=== PATIENT | male | born 1990 | race Caucasian/White ===

== ENCOUNTER 2024-01-07 09:57 | Emergency (ER) | payer OTHER, SELFPAY ==
[2024-01-07 10:14] VITALS: BP 131/84; PULSE 96; RESP 12; TEMP 36.8; O2SAT 97; BMI 33.6
--- NOTE | 2024-01-07 10:31 | W.ED.ABDPA2 ---
HPI - Abdominal Pain General: Chief Complaint: Abdominal Pain Stated Complaint: right abd pain Time Seen by Provider: 01/07/24 10:04 Source: patient Mode of arrival: ambulatory Limitations: no limitations History of Present Illness: 33-year-old male states has been having some right lower quadrant abdominal pain since last night. States pain sharp in nature he rates it a 5 out of 10 currently he denies any worsening proving factors. He denies any vomiting or diarrhea. Associated Symptoms: Denies chills, diarrhea, fever(s), nausea and vomiting Related Data Home Medications Medication Instructions Recorded Confirmed acetaminophen 325 mg tablet 650 mg PO QID PRN Pain 01/07/24 01/07/24 (Tylenol) Allergies Allergy/AdvReac Type Severity Reaction Status Date / Time metoclopramide [From Reglan] Allergy ADR-Anxiety Verified 01/07/24 10:20 Review of Systems Const: Denies: fever(s), chills, body aches or change in appetite ENMT: Denies: throat pain or dental pain Card: Denies: chest pain Resp: Denies: dyspnea GI: Reports: abdominal pain; Denies: nausea, vomiting or diarrhea Musc: Denies: neck pain or back pain Skin/Breast: Denies: rash Neuro: Denies: headache(s) Physical Exam Const: COMMON NORMALS: no acute distress, patient oriented x3 and healthy appearing HENMT: COMMON NORMALS: normocephalic and atraumatic HEAD & SCALP: normocephalic and atraumatic Neck/C-Spine: COMMON NORMALS: full ROM and supple Chest: COMMONS NORMALS: normal inspection of the chest Resp: COMMON NORMALS: normal respiratory effort, No retractions, No use of accessory muscles and clear to auscultation bilaterally AUSCULTATION: clear to auscultation bilaterally Cardio: COMMON NORMALS: regular rate, regular rhythm and No murmurs present (Cardio) RATE: regular rate RHYTHM: regular rhythm GI: COMMON NORMALS: Normal to inspection, nondistended, normoactive bowel sounds present, Soft to palpation, non-tender and no masses PALPATION: Yes Soft to palpation and Yes Tenderness to palpation present (GI) (right sided tenderness) Extremity: COMMON NORMALS: normal to inspection and full ROM Neuro: COMMON NORMALS: patient oriented x3, moves all extremities and no focal motor deficits Psych: COMMON NORMALS: mental status grossly normal, Normal thought process present and cooperative THOUGHT PROCESS: Normal thought process present Skin: COMMON NORMALS: no rashes or lesions noted and no wounds GENERAL SKIN EXAM: no rashes or lesions noted Course Vital Signs: Vital signs: Vital Signs Temperature 98.3 F 01/07/24 10:14 Pulse Rate 91 01/07/24 11:03 Respiratory Rate 12 01/07/24 10:14 Blood Pressure 130/92 01/07/24 11:03 Pulse Oximetry 99 01/07/24 11:03 Oxygen Delivery Me thod Room Air 01/07/24 11:03 MDM - Abdominal Pain Medical Decision Making Presents here with abdominal pain he has been well-appearing here his blood work CT scan here are normal stable for discharge patient is follow-up with PCP and return if worsening Medical Records I reviewed the patient's medical records. Lab Data I reviewed the patient's lab results. 01/07/24 10:45 01/07/24 10:45 Labs/Radiology: Radiology Impressions Abdomen/Pelvis CT 01/07/24 11:10 IMPRESSION: No acute subdiaphragmatic pathology. Laboratory Results WBC 8.78 10^3/uL (3.29-11.43) 01/07/24 10:45 RBC 5.11 10^6/uL (3.85-5.65) 01/07/24 10:45 Hgb 15.90 g/dL (11.27-16.99) 01/07/24 10:45 Hct 46.1 % (37-53) 01/07/24 10:45 MCV 90.2 fl (82-101) 01/07/24 10:45 MCH 31.1 pg (27-33) 01/07/24 10:45 MCHC 34.5 g/dL (30-55) 01/07/24 10:45 RDW 12.1 % (12.1-15.1) 01/07/24 10:45 Plt Count 235 10^3/cmm (157-399) 01/07/24 10:45 MPV 9.8 fL (7.4-10.4) 01/07/24 10:45 Neut % (Auto) 70.4 % 01/07/24 10:45 Lymph % (Auto) 19.4 % 01/07/24 10:45 [place] % (Auto) 7.4 % 01/07/24 10:45 Eos % (Auto) 1.7 % 01/07/24 10:45 Baso % (Auto) 0.6 % 01/07/24 10:45 Neut # (Auto) 6.19 10^3/uL (1.8-7.7) 01/07/24 10:45 Lymph # (Auto) 1.7 10^3/uL (0.8-4.8) 01/07/24 10:45 [place] # (Auto) 0.7 10^3/uL (0.2-0.9) 01/07/24 10:45 Eos # (Auto) 0.2 10^3/uL (0.0-0.8) 01/07/24 10:45 Baso # (Auto) 0.1 10^3/uL (0.0-0.1) 01/07/24 10:45 Nucleated RBC % (auto) 0 % 01/07/24 10:45 Nucleated RBCs # 0.0 /100WBC 01/07/24 10:45 Sodium 138 mmol/L (136-145) 01/07/24 10:45 Potassium 4.4 mmol/L (3.5-5.1) 01/07/24 10:45 Chloride 102 mmol/L (98-107) 01/07/24 10:45 Carbon Dioxide 25 mmol/L (22-29) 01/07/24 10:45 Anion Gap 15.4 (5-19) 01/07/24 10:45 BUN 19 mg/dL (6-20) 01/07/24 10:45 Creatinine 0.8 mg/dL (0.7-1.2) 01/07/24 10:45 GFR Calculation 111.3 mL/min (90-130) 01/07/24 10:45 Glucose 93 mg/dL (65-115) 01/07/24 10:45 Calculated Osmolality 288 mOsm/kg (285-295) 01/07/24 10:45 Calcium 9.5 mg/dL (8.5-10.5) 01/07/24 10:45 Total Bilirubin 0.4 mg/dL (0.15-1.2) 01/07/24 10:45 AST 18 U/L (0-40) 01/07/24 10:45 ALT 24 U/L (0-41) 01/07/24 10:45 Alkaline Phosphatase 58 U/L (40-130) 01/07/24 10:45 Total Protein 6.7 g/dL (6.6-8.7) 01/07/24 10:45 Albumin 4.2 g/dL (3.5-5.2) 01/07/24 10:45 Globulin 2.5 g/dL (1.3-4.6) 01/07/24 10:45 Lipase 20 U/L (13-60) 01/07/24 10:45 Urine Color Yellow (Yellow) 01/07/24 11:00 Urine Appearance Clear (CLEAR) 01/07/24 11:00 Urine pH 6.5 (5-7) 01/07/24 11:00 Ur Specific [place] 1.021 (1.005-1.030) 01/07/24 11:00 Urine Protein Negative (Negative) 01/07/24 11:00 Urine Glucose (UA) Negative (Normal) 01/07/24 11:00 Urine Ketones Negative (Negative) 01/07/24 11:00 Urine Blood Negative (Negative) 01/07/24 11:00 Urine Nitrate Negative (Negative) 01/07/24 11:00 Urine Bilirubin Negative (Negative) 01/07/24 11:00 Urine Urobilinogen 1.0 mg/dL (Negative) 01/07/24 11:00 Ur Leukocyte Esterase Negative (Negative) 01/07/24 11:00 Urine RBC 0-2 /hpf (0-2) 01/07/24 11:00 Urine WBC 0-5 /hpf (0-5) 01/07/24 11:00 Ur Squamous Epith Cells 0-5 /hpf (0-5) 01/07/24 11:00 Amorphous Sediment Not Reportable 01/07/24 11:00 Urine Bacteria None seen /hpf (NONE) 01/07/24 11:00 Hyaline Casts 0-4 /lpf H 01/07/24 11:00 All radiology interpretation(s) finalized by discharge Discharge Plan Discharge Patient Disposition: Home Clinical Impression: Abdominal pain Condition: Stable Prescriptions: No Action acetaminophen [Tylenol] 325 mg Tablet 650 mg PO QID PRN (Reason: Pain) Discharge Orders: Discharge ED (Routine); Ordered 01/07/24 Ordered By: Sameera Kaba Referrals: Des Andres MD [Primary Care Provider] - 4-7 days Discharge Diet: Advance as tolerated Discharge Activity: Resume usual activity Patient Instructions: Abdominal Pain (ED) Coding Level of Care Code ED [employer] for Fran Gomez
[2024-01-07 10:52] LABS: Basophils # 0.1 10^3/uL (0.0-0.1); Basophils % 0.6 %; Eosinophils # 0.2 10^3/uL (0.0-0.8); Eosinophils % 1.7 %; Hematocrit 46.1 % (37-53); Lymphocytes # 1.7 10^3/uL (0.8-4.8); Lymphocytes % 19.4 %; Mean Corpuscular HGB Conc 34.5 g/dL (30-55); Mean Corpuscular Hemoglobin 31.1 pg (27-33); Mean Corpuscular Volume 90.2 fl (82-101); Mean Platelet Volume 9.8 fL (7.4-10.4); Monocytes # 0.7 10^3/uL (0.2-0.9); Monocytes % 7.4 %; Neutrophils # 6.19 10^3/uL (1.8-7.7); Neutrophils % 70.4 %; Nucleated Red Blood Cells % 0 %; Platelet Count 235 10^3/cmm (157-399); Red Blood Count 5.11 10^6/uL (3.85-5.65); Red Cell Distribution Width 12.1 % (12.1-15.1); White Blood Count 8.78 10^3/uL (3.29-11.43)
[2024-01-07] MEDS: ondansetron 2 mg/ML SDV 2 mL 4 MG IVP (11:02)
[2024-01-07 11:03] VITALS: BP 130/92; PULSE 91; O2SAT 99
[2024-01-07] MEDS: ketorolac 30 mg/mL INJ 15 MG IVP (11:07)
--- NOTE | 2024-01-07 11:10 | CTR_ITS ---
PROCEDURE INFORMATION: Exam: CT Abdomen And Pelvis With Contrast Exam date and time: 01/07/2024 11:15 AM Age: 33 years old Clinical indication: Abdominal pain; Localized; Right; Additional info: Abd pain TECHNIQUE: Imaging protocol: Computed tomography of the abdomen and pelvis with contrast. Radiation optimization: All CT scans at this facility use at least one of these dose optimization techniques: automated exposure control; mA and/or kV adjustment per patient size (includes targeted exams where dose is matched to clinical indication); or iterative reconstruction. Contrast material: OMNI 350; Contrast volume: 100 ml; Contrast route: INTRAVENOUS (IV); COMPARISON: No relevant prior studies available. RADIATION DOSE METRICS: Total DLP (mGy-cm): 936.47 FINDINGS: Liver: Normal. No mass. Gallbladder and biliary ducts: Normal. No calcified stones. No ductal dilation. Pancreas: Normal. No ductal dilation. Spleen: 13 cm mild splenomegaly. Adrenal glands: Normal. No mass. Kidneys and ureters: Normal. No hydronephrosis. Stomach and bowel: Unremarkable. No obstruction. No mucosal thickening. Appendix: No evidence of appendicitis. Intraperitoneal space: Unremarkable. No free air. No significant fluid collection. Vasculature: Unremarkable. No abdominal aortic aneurysm. Lymph nodes: Unremarkable. No enlarged lymph nodes. Urinary bladder: Unremarkable as visualized. Reproductive: Unremarkable as visualized. Bones/joints: Unremarkable. No acute fracture. Soft tissues: Unremarkable. CT/CT abdomen pelvis w con* [id number] IMPRESSION: No acute subdiaphragmatic pathology.
[2024-01-07 11:11] LABS: Alanine Aminotransferase 24 U/L (0-41); Albumin Level 4.2 g/dL (3.5-5.2); Alkaline Phosphatase 58 U/L (40-130); Anion Gap 15.4 (5-19); Aspartate Amino Transferase 18 U/L (0-40); Blood Urea Nitrogen 19 mg/dL (6-20); Calcium 9.5 mg/dL (8.5-10.5); Carbon Dioxide 25 mmol/L (22-29); Chloride 102 mmol/L (98-107); Creatinine Clr Calc Pharmacy 146.1382; Globulin 2.5 g/dL (1.3-4.6); Glomerular Filtration Rate 111.3 mL/min (90-130); Glucose 93 mg/dL (65-115); Lipase 20 U/L (13-60); Osmolality Calculated 288 mOsm/kg (285-295); Potassium 4.4 mmol/L (3.5-5.1); Sodium 138 mmol/L (136-145); Total Bilirubin 0.4 mg/dL (0.15-1.2); Total Protein 6.7 g/dL (6.6-8.7)
[2024-01-07] MEDS: iohexol 350 mg/mL 500 mL Btl (per mL) IV (11:17)
[2024-01-07 11:33] LABS: Bilirubin Urine Negative (Negative); Blood Urine Negative (Negative); Glucose Urine UA Negative (Normal); Ketones Urine Negative (Negative); Leukocyte Esterase Urine Negative (Negative); Nitrate Urine Negative (Negative); Protein Urine Negative (Negative); Specific Gravity, Urine 1.021 (1.005-1.030); Urine Appearance Clear (CLEAR); Urine Color Yellow (Yellow); pH Urine 6.5 (5-7)
[2024-01-07 11:36] LABS: Add Urine Microscopic? YES; Bacteria Urine None Seen /hpf; Hyaline Casts Urine 0-4 /lpf; RBC Urine 0-2 /hpf (0-2); Squamous Epithelial Cell Urine 0-5 /hpf (0-5); WBC Urine 0-5 /hpf (0-5)
[2024-01-07 11:48] VITALS: BP 122/86; PULSE 81; O2SAT 98
== END 2024-01-07 11:49 | disposition home or self-care (01) ==
PROVIDERS: Emergency Provider Emergency Medicine; PCP Family Medicine
DX: R10.9 Unspecified abdominal pain (principal)
CPT/HCPCS: 36415; 74177; 80053; 81001; 83690; 85025; 96374; 96375; 99285; J1885; J2405